=== PATIENT | male | born 1985 | race Asian ===

== ENCOUNTER 2019-02-08 21:35 | Emergency (ER) | payer OTHER ==
[~2019-02-08] VITALS: Ht 172.7 cm; Wt 72.6 kg
[2019-02-08 21:38] VITALS: BP 138/92; Ht 172.7 cm; Wt 72.6 kg
[2019-02-23] MEDS ORDERED: METOPROLOL TART25 M1 PO (11:23)
== END 2019-02-08 23:21 | disposition left against medical advice (07) ==
LOC: ED 21:35
DX: Z53.21 Procedure and treatment not carried out due to patient leaving prior to being seen by health care provider (principal)

== ENCOUNTER 2019-02-12 23:23 | Inpatient (IN) | payer OTHER ==
[~2019-02-12] VITALS: Ht 182.9 cm; Wt 68.9 kg
--- NOTE | 2019-02-13 00:17 | NUR ---
SAHRA, EMT, AWARE OF EKG VERBAL TEST REQUEST.
[2019-02-13 00:50] LABS: BASOPHIL % 0.5 % (0-2); PLATELET COUNT 365 x10^3mcL (130-400); RED CELL DISTRIBUTION WIDTH 13.1 % (11.5-14.5)
--- NOTE | 2019-02-13 01:32 | NUR ---
DR BIRD, ERP, AWARE OF TROP LEVEL AND AT BEDSIDE TO DISCUSS PLAN OF CARE WITH PT AND FAMILY.
[2019-02-13 01:33] LABS: CALCIUM 9.1 mg/dL (8.5-10.1); CARBON DIOXIDE 28.3 mmol/L (21-32); CHLORIDE SERUM 103 mmol/L (98-107); GFR1 > 60 mL/min; GLUCOSE SERUM 123 mg/dL (74-106); POTASSIUM SERUM 3.6 mmol/L (3.5-5.1); SODIUM SERUM 141 mmol/L (136-145)
[2019-02-13 01:38] LABS: ALBUMIN 4.1 g/dL (3.4-5.0); ALKALINE PHOSPHATASE 75 U/L (46-116); ALT/SGPT 82 U/L (16-63); AST/SGOT 33 U/L (15-37); BILIRUBIN TOTAL 0.6 mg/dL (0.20-1.00)
--- NOTE | 2019-02-13 02:53 | NUR ---
PT AWARE OF NEEDED URINE SPECIMEN. PT AAOX4, VSS, SPEAKS IN FULL CLEAR SENTENCES, REPORTS RELIEF FROM PAIN AT THIS TIME. RESTING COMFORTABLY IN BED. PT REPORTED FEELING "WORRIED." TESTS, PLAN OF CARE, MED EXPLAINED AND DISCUSSED WITH PT BY BOTH ERP, DR BIRD, AND RN PRIOR TO COMPLETION. PT GIVEN OPPORUTNITY TO ASK QUESTIONS. PT ACCEPTING HELP, AGREED AND VERBALIZED UNDERSTANDING. REMAINS AT BEDSIDE. NO OBVIOUS SIGNS OF DISTRESS AT THIS TIME. WILL CONTINUE TO MONITOR.
--- NOTE | 2019-02-13 03:06 | NUR ---
PT ADMITTED (TELE ADMISSION - ROOM#[id number]). REPORT CALLED TO DARRIUS GAINES. OPPORTUNITY GIVEN TO ASK QUESTIONS. PT BEING TRANSFERRED TO FLOOR BY RN AND EMT.
--- NOTE | 2019-02-13 03:17 | NUR ---
ADMITTED A 33 YEAR OLD MALE WITH DIAGNOSIS OF ACS,PT CAME TO THE FLOOR VIA GUERNEY AND ACCOMPNIED BY THE NURSE AND ,PT WAS RECIEVED TO BE MADE COMFORTABLE IN BED TELE MONITOR AND PALCED ON THE PATIENT IN NSR NO ECTOPY OR CHEST PAIN REPORTED AT THIS TIME.ON INITIAL ASSESSMENT PATIENT IS AAO REG RESP NO SOB,NO CHEST REPORTED AT THIS TIME,PT WAS ORIENTED TO THE CALL LIGHT BED CONTROL TELE MONITOR AND THE BATHROOM PT VERBALIZED UNDERSTANDING.PT CAME TO THE FLOOR ON HEPARIN DRIP INFUSING TO AT THE RATE OF 8.4 ML/HR THE LT AC SITE PATENT AND INTACT NO ADVERSE REACTION NOTICE AT THIS TIME 0400 HEPARIN RECALCULATED WITH PATIENT WT 68 KGS AND INFUSION ADJUSTED AT 800 UNIT,EQUIVALENT TO 8 ML/HR,PT RESTING AT THIS AND WILL CONTINUE TO MONITOR.
[2019-02-13 03:26] VITALS: BP 121/76
--- NOTE | 2019-02-13 04:22 | NUR ---
CALLED TWICE TO OBTAIN ADMISSION ORDERS FROM THE DOCTORS NO RESPOND,MADE THE CHARGE NURSE AWARE WILL CONTINUE TO MONITOR.
--- NOTE | 2019-02-13 05:01 | NUR ---
CALL THE EXCHNAGE AGAIN AND WAITING FOR THE DOCTOR FOR ORDERS.
--- NOTE | 2019-02-13 06:26 | NUR ---
PT RESTING AT THIS TIME NO CHANGE AND WILL CONTINUE TO MONITOR.
--- NOTE | 2019-02-13 06:40 | NUR ---
DOCTOR HAS NOT CALL BACK WILL ENDORSED TO THE AM NURSE,MADE CHARGE AGAIN AWARE OF THE SITUATION,PT RESTING AT THIS TIME,WILL CONTINUE TO MONITOR
--- NOTE | 2019-02-13 07:10 | NUR ---
RECEIVED REPORT FROM DARRIUS GAINES AT BEDSIDE, PT IN BED IN NO ACUTE DISTRESS
--- NOTE | 2019-02-13 07:35 | NUR ---
PT IN BED, IN NO ACUTE DISTRESS, VRBAL, [place], ABLE TO MAKE NEEDS KNOWN, CALM AND COPPERATIVE W/ POC, PERRLA, NO REDNESS/DRAINGE, NO FACIAL DROOP/SLURRED SPEECH, RESP EVEN, NO SOB/COUGH, RA, TELE #22, NSR, HR-79 AT THIS TIME, DENIED CP/PALPITATION/AG, DENIED N/V/D, AND FLAT AND NON-TENDER TO TOUCH, BS ACTIVE X 4, LAST BM THIS AM PER PT REPORT, SOFT, CAP REFILL < 3, PALP PULSES, AMBULATORY, CONTINENT, IV PATENT AND INFUSING WELL, DRESSING CDI, SEE SKIN ASSESSMENT, SKIN C/D/W, ALL NEEDS ADDRESSED AT THIS TIME, SAFETY MONITOR, FAMILY AT BEDSIDE, CONTINUE TO MONTOR
[2019-02-13 07:48] LABS: AMPHETAMINE QUAL UR NONE DETECTED (See below)
--- NOTE | 2019-02-13 08:37 | NUR ---
ECHO CARDIOGRAM DONE AT BEDSIDE, PT TOELRATED WELL, FAMILY AT BEDSIDE
--- NOTE | 2019-02-13 09:52 | NUR ---
AM MED GIVEN PER MD ORDER VIA EMAR, TOLERATED WELL, NO ASE NOTED AT THIS TIME, PT IN BED IN NO ACUTE DISTRESS, CONTINUE TO MONITOR
--- NOTE | 2019-02-13 10:04 | NUR ---
DR VILCHIS AT BEDSIDE TO SEE PT, MADE AWARE OF NEW PT LEVEL AND TROP LEVEL, NO CHANGE IN HEPARIN DRIP LEVEL, CONT AT 800 UNITS/HR PER PROTOCOL, PT AND FAMILY MADE AWARE, CONTINUE TO MONITOR
--- NOTE | 2019-02-13 10:11 | NUR ---
PT LAB TO BED DONE AT 1300 02/13/19 PER NURSING PROTOCOL AND HOSPITAL PROTOCOL FOR PATIENT ON HEPARIN DRIP, PT MADE AWARE, DR VILCHIS MADE AWARE, CHARGE NURSE ISRAEL MADE AWARE, CONTINUE TO MONITOR
[2019-02-13 12:14] VITALS: BP 117/85
[2019-02-13 12:14] LABS: CHOLESTEROL/HDL RATIO 3.4
--- NOTE | 2019-02-13 14:20 | NUR ---
NEW RATE OF HEPARIN DRIP CHANGED TO 900 UI/HR PER PROTOCOL AND PT CURRENT PTT LEVEL, 2700 UI HEPATIN BOLUS GIVEN, COSIGNED AND WITNESSED BY XENIA GAINES, PT MADE AWARE, FAMILY AT BEDSIDE, SEEN BY MACHINE OPERATOR CANE CUTTER DR TENORIO, QUESTION ASKED AND ANSWERED, NO FURTHER CONCERN NEEDED WHEN ASKED, CONTINUE TO MONITOR
--- NOTE | 2019-02-13 15:21 | NUR ---
PTT LAB TO BE DONE AT 1700 02/13/19 PER NURSING PROTOCOL AND HOSPITAL PROTOCOL FOR PATIENT ON HEPARIN DRIP, PT MADE AWARE, DR VILCHIS MADE AWARE, CHARGE NURSE ISRAEL MADE AWARE, CONTINUE TO MONITOR
--- NOTE | 2019-02-13 15:29 | NUR ---
PER DR VILCHIS, PT JUICE HAVE REG DIET AT DINNER, NPO AFTER MIDNIGHT, PT REQUESTED VEGETARIAN DIET, UNDERLAY STITCHER MADE AWARE, PT HAVE MILK AND JELLO AT THIS TIME, CONTINUE TO MONITOR
[2019-02-13 16:27] VITALS: BP 123/81
--- NOTE | 2019-02-13 17:35 | NUR ---
PT IN BED, IN NO ACUTE DISTRESS, VERBAL, ABLE TO MAKE NEEDS KNOWN, NO FACIAL DROOP/SLURRED SPEECH, DENIED CP/PALPITATION/AG, DENIED N/V/D, IV PATENT AND INFUSING WELL, HEPARIN DRIP AT 900 UI/HR AT THIS TIME PER PTT RESULT AND PER PROTOCOL, CO-CONFIRMED WITH CHARGE NURSE STAR GAINES, DRESSING CDI, PT MADE AWARE OF NPO AFTER MIDNIGHT FOR CARDIAC ANGIOGRAM PROCEDURE TOMORROW, VERBALLY UNDERSTANDING, ALL NEEDS ADDRESSED AT THIS TIME, SAFETY PROTOCOL FOLLOWED, WILL ENDORSE TO ONCOMING RN
--- NOTE | 2019-02-13 18:22 | NUR ---
RECEIVED REPORT FROM LAB R/T PTT RESULT, ADJUSTED HEPARIN DRIP PER NURSING PROCOTOL AND HOSPITAL PROTOCOL, HEPARIN DRIP AT 800 IU/HR PER PROTOCOL CALCULATION AT THIS TIME , CO-CONFIRMED BY STEPHANIE GAINES, PT MADE AWARE, NEW PTT LAB AT 2230 ON 02/13/19 PER PROTOCOL, ALL NEEDS ADDRESSED AT THIS TIME, CONTINUE TO MONITOR
--- NOTE | 2019-02-13 21:09 | NUR ---
PATIENT RECEIVED AWAKE, ALERT, ORIENTED X4. RESPIRATION EVEN AND UNLABORED, ON ROOM AIR. SALINE LOCK TO LT AC AND RT AC PATENT AND INTACT. DENIES PAIN AT THIS TIME. LBM 02/13/19. VOIDING FREELY WITHOUT DIFFICULTY. MOVES ALL EXTREMITIES FREELY. SKIN DRY AND INTACT. ON TELE #22. FOR CARDIAC CATH TOMORROW. WILL CONTINUE TO MONITOR.
[2019-02-13 21:23] VITALS: BP 129/94
[2019-02-14] VITALS (9 sets, daily range): BP systolic 117–146; BP diastolic 72–92
--- NOTE | 2019-02-14 00:15 | NUR ---
PATIENT LATEST PTT 43.0 REBOLUS WITH HEPARIN 2700 UNITS AND INCREASE INFUSION BY 100 UNITS/HR PER HEPARIN PROTOCOL. WILL RECHECK PTT IN 4 HOURS.
[2019-02-14 04:51] LABS: CALCIUM 9.6 mg/dL (8.5-10.1); CARBON DIOXIDE 27.3 mmol/L (21-32); CHLORIDE SERUM 104 mmol/L (98-107); CREATININE SERUM 0.9 mg/dL (0.7-1.3); GFR1 > 60 mL/min; GLUCOSE SERUM 103 mg/dL (74-106); MAGNESIUM 2.1 mg/dL (1.8-2.4); PHOSPHOROUS 4.4 mg/dL (2.5-4.9); POTASSIUM SERUM 3.9 mmol/L (3.5-5.1); SODIUM SERUM 140 mmol/L (136-145)
[2019-02-14 05:43] LABS: BASOPHIL % 0.8 % (0-2); PLATELET COUNT 361 x10^3mcL (130-400); RED CELL DISTRIBUTION WIDTH 12.7 % (11.5-14.5)
--- NOTE | 2019-02-14 06:43 | NUR ---
PATIENT LATEST PTT 77.7 REDUCED INFUSION BY 100 UNITS/HR. WILL CHECK PTT IN 4 HOURS. WILL CONTINUE TO MONITOR.
--- NOTE | 2019-02-14 06:53 | NUR ---
PATIENT RESTING IN BED. RESPIRATION EVEN AND UNLABORED, ON ROOM AIR. DENIES DISCOMFORT/PAIN. ONGOING HEPARIN DRIP AT 800 UNITS/HR. NO SIGN OF BLEEDING NOTED. ON NPO EXCEPT MEDS. FOR HEART CATH THIS PM. ASSISTED WITH NEEDS. SAFETY OBSERVED. PLACED BED IN THE LOWEST POSITION. PLACED CALL LIGHT WITHIN REACH AT ALL TIMES.
--- NOTE | 2019-02-14 07:10 | NUR ---
RECEIVED REPORT FROM JONAS GAINES, PT SLEEPING IN BED IN NO ACUTE DISTRESS
--- NOTE | 2019-02-14 07:42 | NUR ---
PT IN BED, IN NO ACUTE DISTRESS, VERBAL, FINNISH, ABLE TO MAKE NEEDS KNOWN, CALM AND COOPERATIVE W/ POC, PERRLA, NO REDNESS/DRAINGE, NO FACIAL DROOP/SLURRED SPEECH, RESP EVEN, LUNGS CTA, NO SOB/COUGH, RA, TELE #22, NSR, HR-84 AT THIS TIME, DENIED CP/PALPITATION/AG, DENIED N/V/D, AND FLAT AND NON-TENDER TO TOUCH, BS ACTIVE X 4, CAP REFILL < 3, PALP PULSES, AMBULATORY, CONTINENT, IV PATENT AND INFUSING WELL, HEPARIN DRIP NOTED AT 800 UI/HR AT THIS TIME PER PTT LAB RESULT PER NURSING PROTOCOL AND HOSPITAL PROTOCOL, CO-CHECKED W/ CHARGE NURSE ISRAEL GAINES, DRESSING CDI, SEE SKIN ASSESSMENT, SKIN C/D/W, ALL NEEDS ADDRESSED AT THIS TIME, SAFETY PROTOCOL MONITOR, FAMILY AT BEDSIDE, CONTINUE TO HELIO
--- NOTE | 2019-02-14 09:48 | NUR ---
AM MEDS GIVEN PER MD ORDER VIA EMAR, TOLERATED WELL, NO ASE NOTED AT THIS TIME, EDUCATION R/T MED, ASE AND MONITOR GIVEN TO PT, VERBALLY UNDERSTANDING, CONTINUE TO MONITOR
--- NOTE | 2019-02-14 09:54 | NUR ---
PTT LAB TO BE DONE AT 1045 02/14/19 PER NURSING PROTOCOL AND HOSPITAL PROTOCOL FOR PATIENT ON HEPARIN DRIP, PT MADE AWARE, DR VILCHIS MADE AWARE, CHARGE NURSE ISRAEL MADE AWARE, CONTINUE TO MONITOR
--- NOTE | 2019-02-14 10:25 | NUR ---
PT MADE AWARE OF FOLDING MACHINE FEEDER SCHEDULED AT 1600, PT WILL BE PICKED UP AT APPROXIMATELY 1430 PER FOLDING MACHINE FEEDER RN, NO FURTHER CONCERN NEEDED WHEN ASKED, CONTINUE TO MONITOR
--- NOTE | 2019-02-14 11:02 | NUR ---
PATIENT LATEST PTT 13.8, BOLUS WITH HEPARIN 2700 UNITS AND INCREASE INFUSION BY 100 UNITS/HR PER HEPARIN PROTOCOL. HEPARIN DRIP AT 900 UI/HR AT THIS TIME, WILL RECHECK PTT IN 4 HOURS PER NURSING HEPARIN PROTOCOL
--- NOTE | 2019-02-14 11:51 | NUR ---
PER DR TENORIO DIRECT SERVICE WORKER, HEPARIN DRIP WILL BE STOP AT 1300 D/T HOSPITAL POLICY TO STOP HEPARINE DRIP AT LEAST 3 HOURS PRIOR MAINTENANCE AIDE PROCEDURE, PT MADE AWARE, CHARGE NURSE ISRAEL MADE AWARE, CONTINUE TO MONITOR
--- NOTE | 2019-02-14 13:26 | NUR ---
INFORMED CONSENT SIGNED, TALI BATH GIVEN, HEPARIN DRIP STOPPED, PT MADE AWARE OF PROCEDURE, NO FURTHER CONCERNS NEEDED AT THIS TIME, ESTELLA GAINES CAME TO DISCUSS W/ PT R/T HGA1C AT 6.0 PRE-DIABETIC, PT IN BED, IN NO ACUTE DISTRESS, BOTH IV PATENT AND FLUSHING WELL
--- NOTE | 2019-02-14 14:05 | NUR ---
PTT LAB TO BE DONE AT 1500 02/14/19 PER NURSING PROTOCOL AND HOSPITAL PROTOCOL FOR PATIENT ON HEPARIN DRIP, PT MADE AWARE, DR VILCHIS MADE AWARE, CHARGE NURSE ISRAEL MADE AWARE, CONTINUE TO MONITOR
--- NOTE | 2019-02-14 14:57 | NUR ---
CALLED LAB AND MADE AWARE PT WILL BE AT OUTPATIENT SERVICE FOR CASE MANAGEMENT MANAGER SCHEDULED AT 1600, SAID WILL COME TO OUTPATIENT FLOOR TO DRAW BLOOD FOR PTT PER NURSING PROTOCOL AT 1500, PT AND FAMILY MADE AWARE, PT WHEELED TO OUTPATIENT BY 2 RNs
--- NOTE | 2019-02-14 15:00 | NUR ---
RECEIVED PT VIA WHEELCHAIR TO OPS FOR PRE CARDIAC CATH OBSERVATION. PT AWAKE AND ALERT. QUESTIONS AND CONCERNS ADDRESSED. TEMP 98. HR=67 ON RUG FRAME MOUNTER SHOWS SINUS RHYTHM. DENIES CHEST DISCOMFORT. RESP 18 EVEN. NO RESP DISTRESS. ZA=092/86. CONSENT ON CHART. NPO SINCE MIDNIGHT. SALINE LOCK X2 18G RAC AND LAC FLUSHED AND PATENT. ARMBAND ASSESSED. NKA. FAMILY AT BEDSIDE. PT SITTING IN WHEELCHAIR AT THIS TIME. CALL LIGHT IN REACH. WILL CONTINUE TO MONITOR.
--- NOTE | 2019-02-14 15:15 | NUR ---
LAB HERE TO DRAW STAT PTT.
--- NOTE | 2019-02-14 15:25 | NUR ---
RIGHT WRIST SHAVE PREP COMPLETED. MESERET HERE FROM [facility]. REQUESTS RIGHT AND LEFT GROIN TO BE PREPPED. PT ASSISTED TO [facility]. MESERET ABLE TO PREP RIGHT AND LEFT GROIN. PT ASSISTED BACK TO WHEELCHAIR. PTT RESULTS PENDING. PT TAKEN VIA WHEELCHAIR TO [facility] AT THIS TIME.
--- NOTE | 2019-02-14 15:30 | NUR ---
CORRECTION. PT CONNECTED TO PORTABLE MILK DELIVERER AND TAKEN TO SANDWICH HAND AT THIS TIME. FAMILY WAITING IN OPS.
--- NOTE | 2019-02-14 16:00 | NUR ---
TC TO DICTATING TRANSCRIBING MACHINE SERVICER. SPOKE WITH SARA GAINES DIRECTOR. UPDATED WITH PTT=28.8.
--- NOTE | 2019-02-14 16:30 | NUR ---
DR ZEPEDA IN TO SPEAK WITH AND FRIEND. REVIEWED CARDIAC CATH FINDINGS WITH PICTURE DIAGRAM. VERBALIZED UNDERSTANDING.
--- NOTE | 2019-02-14 16:45 | NUR ---
RECEIVED PT BACK FROM AUTOMOTIVE WORKER FOREMAN VIA [employer] AWAKE AND ALERT. HOB ELEVATED SLIGHTLY. CONNECTED TO DRY HOUSE ATTENDANT SHOWS SINUS RHYTHM RATE 76. QP=211/73. RESP 18 EVEN. NO SOB OR DISTRESS. TEMP 97.8. RIGHT ARM WITH WRIST GUARD IN PLACE. T-BAND IN PLACE. NO ACTIVE BLEEDING NOTED. RIGHT HAND AND ARM WARM TO TOUCH. PALPABLE RADIAL PULSE. NAIL BEDS NILSA WELL. DENIES CHEST DISCOMFORT OR NUMBNESS AND TINGLING TO RIGHT ARM. SIDE RAILS UP X2. CALL LIGHT IN REACH. WILL CONTINUE TO MONITOR.
--- NOTE | 2019-02-14 17:00 | NUR ---
HR=73 SINUS RHYTHM. LP=578/72. RESP 18 EVEN. NO SOB OR DISTRESS. RIGHT ARM T-BAND IN PLACE. NO ACTIVE BLEEDING. RIGHT HAND AND ARM WARM TO TOUCH WITH PALPABLE RADIAL PULSE. NAIL BEDS NILSA WELL. IV CONTINUES NORMAL SALINE TKO LAC. RAC SALINE LOCK. DENIES NUMBNESS OR TINGLING TO EXTREMITY. WILL CONTINUE TO MONITOR.
--- NOTE | 2019-02-14 17:15 | NUR ---
PT RESTING. NO DISTRESS NOTED. HR=75. SINUS RHYTHM. OQ=960/92. RESP 18 EVEN. PULSE OX 96% RA. NO RESP DISTRESS. NO C/O CHEST DISCOMFORT OR NUMBNESS OR TINGLING TO RIGHT ARM. T-BAND NOTED. NO ACTIVE BLEEDING. FINGERS AND ARM WARM TO TOUCH. PALPABLE RADIAL PULSE. MOVES FINGERS WELL. NO SWELLING NOTED. WILL CONTINUE TO MONITOR.
--- NOTE | 2019-02-14 17:30 | NUR ---
PT RESTING. NO DISTRESS. NO C/O CHEST DISCOMFORT OR SOB. HR=80 SINUS RHYTHM. JB=783/74. RESP 18 EVEN. PULSE OX 96% ON RA. RIGHT WRIST GUARD IN PLACE. T-BAND IN PLACE CONTINUES WITH 14ML AIR. NO BLEEDING, SWELLING OR C/O NUMBNESS OR TINGLING TO RIGHT ARM. RADIAL PULSE PALPABLE. ABLE TO MOVE FINGERS WELL ON RIGHT HAND. IV LAC NORMAL SALINE TKO. SIDE RAILS UP X2. CALL LIGHT IN REACH. FAMILY AT BEDSIDE. REPORT CALLED TO BRYCE GAINES ON .
--- NOTE | 2019-02-14 17:45 | NUR ---
PT RESTING. HR=80 SINUS RHYTHM. HJ=983/74. RESP 18 EVEN. PULSE OX 96% RA. NO RESP DISTRESS OR C/O CHEST DISCOMFORT. RIGHT ARM WITH WRIST GUARD IN PLACE. RIGHT ARM AND HAND WARM TO TOUCH. PALPABLE RADIAL PULSE. MOVES FINGERS WELL. DENIES NUMBNESS OR TINGLING. T-BAND IN PLACE WITH CONTINUED 14ML AIR INFLATED. NO BLEEDING, SWELLING OR C/O PAIN AT SITE. IV CONVERTED TO SALINE LOCK LAC. CONNECTED TO PORTABLE TEMPORARY ADMINISTRATIVE ASSISTANT.
--- NOTE | 2019-02-14 17:50 | NUR ---
[facility] REPORT GIVEN TO BRYCE RN AT BEDSIDE. T-BAND SYRINGE TAPED ABOVE BED. BRYCE RN IS AWARE OF POST CARDIAC CATH ORDERS, VITAL SIGN NEEDS. TELE MONITOR REAPPLIED BY CERTIFIED ADDICTION COUNSELOR. PT CONTINUES TO DENY CHEST DISCOMFORT, NUMBNESS OR TINGLING TO RIGHT ARM. NO BLEEDING OR SWELLING NOTED. CARE ENDORSED AT THIS TIME.
--- NOTE | 2019-02-14 17:59 | NUR ---
PT RETURNED FROM BEND SORTER, AXOX4, VERBAL, ABLE TO MAKE NEEDS KNOWN, CALM AND COOPPERATIVE AT THIS TIME, TR BAND CHECKED W/ DRIVER MANAGER, 14ML OF AIR AT THIS TIME, TR BAND APPLIED AT 1624, V/S CHECKED Q15M X 4 IN OUTPATIENT, CONT TO MNITOR V/S QH X 4 AND PER UNIT PROTOCOL, FAMILY AT BEDSIDE, PT DENIED NUMBNESS AND TINLGING TO (R) ARM, CAP REFILL < 2S, SKIN C/D/W, DENIED N/V, EDUCATION GIVEN TO PT AND FAMILY R/T REPORT ABNORMAL S/S, VERBALLY UNDERSTANDING, ALL NEEDS ADDRESSED, SAFETY PROTOCOL FOLLOWED, COTNINEU TO MONITOR, V/S: 128/67, 80, 96% AT RA, 0/10, 18, 98.0
--- NOTE | 2019-02-14 18:37 | NUR ---
TR BAND CHECKED, NO ACTIVE BLEDING NOTED, 7ML OF AIR REMOVED PER PROTOCOL, TOLERATED WELL, NO TIVE BLEEING AT SITE, DENIED NUMBNESS/TINGLING AT SITE, CAP REFILL < 2S, SKIN C/D/W, VS: 98.4, 132/77, 74, 18, 96% AT RA, 0/10
--- NOTE | 2019-02-14 18:49 | NUR ---
PT IN BED IN NO ACUTE DISTRESS, REMOVED THE REST OF 7ML OF AIR PER PROTOCOL PT RT BAND, AREA UNDER SKIN ON (R) WRIST NOTED SWOLLEN, NO ACTIVE BLEEDING NOTED, V/S: 129/78, 79, 97% RA, 18, 0/10, 98.1
--- NOTE | 2019-02-14 19:02 | NUR ---
TR BAND REMOVED PER PROTOCOL, NO ACTIVE BLEEDING NOTED, CONFIRMED W/ CHARGE NURSE ISRAEL, EDUCATION GIVEN TO PT R/T BLEEDING AND JUKEBOX CHECKER, FAMILY AT BEDSIDE, VERBALLY UNDERSTANDING, V/S: 126/72, 81, 18, 97% AT RA, 0/10, 98.1
--- NOTE | 2019-02-14 19:38 | NUR ---
PT IN BED IN NO ACUTE DISTRESS, TELE, DENIED CP/PALPITATION, DENIED N/V, DENIED NUMBESS/TINGLING TO (R) WRIST, NO ACTIVE BLEEDING NOTED, BANDAID APPLIED, CAP REFILL < 2S, SKIN C/D/W, IV PATENT AND FLUSHING WELL, DRESSING CDI, ALL NEEDS ADDRESSED, WILL ENDROSE TO NIGHT RN
--- NOTE | 2019-02-14 20:41 | NUR ---
PATIENT RECEIVED AWAKE, ALERT, ORIENTED X4 IN BED. RESPIRATION EVEN AND UNLABORED, ON ROOM AIR. SALINE LOCK TO RT ANTECUBITAL AND LT ANTECUBITAL AREA PATENT AND INTACT. DENIES DISCOMFORT/PAIN AT THIS TIME. LBM 02/14/19. VOIDING FREELY WITHOUT DIFFICULTY. MOVES ALL EXTREMITIES FREELY. SKIN DRY AND INTACT. ON TELE #22. WILL CONTINUE TO MONITOR.
[2019-02-15 04:58] VITALS: BP 122/70
--- NOTE | 2019-02-15 05:56 | NUR ---
PATIENT AWAKE IN BED. RESPIRATION EVEN AND UNLABORED, ON ROOM AIR. DENIES DISCOMFORT/PAIN TR BAND SITE, NO SWELLING/BLEEDING, WARM TO TOUCH, NORMAL COLOR AND POSITIVE PULSE, SPLINT IN PLACED. SALINE LOCK TO RT AND LT ANTECUBITAL AREA PATENT AND INTACT. ASSISTED WITH NEEDS. SAFETY OBSERVED. PLACED BED IN THE LOWEST POSITION. PLACED CALL LIGHT WITHIN REACH AT ALL TIMES.
[2019-02-15 06:34] LABS: CALCIUM 8.9 mg/dL (8.5-10.1); CARBON DIOXIDE 28.5 mmol/L (21-32); CHLORIDE SERUM 102 mmol/L (98-107); CREATININE SERUM 1.1 mg/dL (0.7-1.3); GFR1 > 60 mL/min; GLUCOSE SERUM 105 mg/dL (74-106); MAGNESIUM 1.9 mg/dL (1.8-2.4); PHOSPHOROUS 4.5 mg/dL (2.5-4.9); SODIUM SERUM 138 mmol/L (136-145)
[2019-02-15 06:43] LABS: BASOPHIL % 0.6 % (0-2); PLATELET COUNT 355 x10^3mcL (130-400); RED CELL DISTRIBUTION WIDTH 12.7 % (11.5-14.5)
--- NOTE | 2019-02-15 07:50 | NUR ---
PT LYING IN BED, A/A. BREATHING EQUAL/UNLABORED ON RA. NO ACUTE DISTRESS OR PAIN AT THIS TIME. NO BLEEDING AT R. RADIAL SITE. NO REDNESS/ SWELLING TO IV SITES. BED IN LOW POSITON, CALL LIGHT IN REACH, SAFETY PRECUATIONS IN PLACE. WILL CONTINUE TO MONITOR
[2019-02-15 08:18] VITALS: BP 111/67
[2019-02-15 12:08] VITALS: BP 122/81
[2019-02-15 12:39] VITALS: BP 122/81
--- NOTE | 2019-02-15 14:47 | NUR ---
PT DC'D HOME A/A, ORIENTED X 4. BREATHING EQUAL/UNLABORED ON RA. NO ACUTE DISTRESS OR PAIN NOTED. DISCHARGE INSTRUCTIONS/ EDUCATION WAS PROVIDED TO PT. PT VERBALIZED UNDERSTANDING. F/U APPT WAS DISCUSSED WITH PT. PT HAD NO NEW RX. IV'S REMOVED WITH CATHETERS INTACT. NO REDNESS/ SWELLING TO IV SITES. ALL BELONGINGS WITH PT. PT AMBULATED TO [facility], ACCOMPANIED BY PETROPHYSICAL ENGINEER AND FRIEND.
[2019-02-18 04:07] LABS: CK-BB 0 % (0); CK-MB 0 % (0-3); CK-MM 100 % (97-100); MACRO TYPE 1 0 % (Not Observed); MACRO TYPE 2 0 % (Not Observed)
[2019-02-23] MEDS ORDERED: METOPROLOL TART25 M1 PO (11:23)
== END 2019-02-15 14:45 | disposition home or self-care (01) | DRG 282 ==
LOC: ED 23:23 → DU 02-13 02:18
PROVIDERS: Emergency Medicine; Family Medicine; Internal Medicine Geriatric Medicine; ADMIT Internal Medicine
PROC: B211YZZ Fluoroscopy of Multiple Coronary Arteries using Other Contrast (ICD-10-PCS; 2019-02-14)
PROC: 4A023N7 Measurement of Cardiac Sampling and Pressure, Left Heart, Percutaneous Approach (ICD-10-PCS; principal; 2019-02-14 16:00)
DX: I21.4 Non-ST elevation (NSTEMI) myocardial infarction (principal); I10 Essential (primary) hypertension; R73.03 Prediabetes; Z79.82 Long term (current) use of aspirin; Z83.3 Family history of diabetes mellitus; Z82.49 Family history of ischemic heart disease and other diseases of the circulatory system
CPT/HCPCS: CLHCL; 76937; C1769; C1894; G0378; J1644; J2001; J2250; J3010; J3490; J7040; Q0092; Q9967

== ENCOUNTER 2019-05-20 22:59 | Emergency (ER) | payer OTHER ==
[~2019-05-20] VITALS: Ht 182.9 cm; Wt 72.6 kg
[~2019-05-20 22:59] MED LIST: METOPROLOL TART25 M1 PO
[2019-05-20 23:02] VITALS: Ht 182.9 cm; Wt 72.6 kg
[2019-05-21 00:19] LABS: BASOPHIL % 1.3 % (0-2); PLATELET COUNT 298 x10^3mcL (130-400); RED CELL DISTRIBUTION WIDTH 13.3 % (11.5-14.5)
[2019-05-21 00:39] LABS: CALCIUM 8.8 mg/dL (8.5-10.1); CARBON DIOXIDE 31.8 mmol/L (21-32); CHLORIDE SERUM 99 mmol/L (98-107); CREATININE SERUM 0.9 mg/dL (0.7-1.3); GFR1 > 60 mL/min; GLUCOSE SERUM 139 mg/dL (74-106); POTASSIUM SERUM 3.7 mmol/L (3.5-5.1); SODIUM SERUM 135 mmol/L (136-145)
[2019-05-21 00:47] LABS: microscopic required? NO
[2019-05-21 00:52] LABS: ALBUMIN 3.9 g/dL (3.4-5.0); ALKALINE PHOSPHATASE 65 U/L (46-116); ALT/SGPT 61 U/L (16-63); AST/SGOT 22 U/L (15-37); BILIRUBIN TOTAL 0.8 mg/dL (0.20-1.00); CHOLESTEROL 127 mg/dL (<200); HDL CHOLESTEROL 30 mg/dL (40-60); LIPASE 158 IU/L (73-393); T4(THYROXINE) 3.7 ug/dL (4.7-13.3); TOTAL PROTEIN, SERUM 7.3 g/dL (6.4-8.2)
[2019-05-21 01:03] LABS: UA SPECIFIC GRAVITY 1.015 (1.005-1.035); urine erythrocyte NEGATIVE (NEGATIVE)
[2019-05-21 01:26] LABS: AMPHETAMINE QUAL UR NONE DETECTED (See below)
[2019-05-21 01:32] VITALS: BP 110/64
== END 2019-05-21 01:32 | disposition left against medical advice (07) ==
LOC: ED 22:59
PROVIDERS: Emergency Medicine
DX: R07.89 Other chest pain (principal); Q24.5 Malformation of coronary vessels
CPT/HCPCS: 36415; 83880; Q0092